=== PATIENT | female | born 1965 | race Hispanic/Latino ===

== ENCOUNTER 2022-07-29 09:38 | Emergency (ER) | payer SELFPAY ==
[2022-07-29] MEDS ORDERED: Ketorolac Tromethamine 30 MG/ML VIAL ONE ×2 (10:17→14:20)
[2022-07-29] MEDS ORDERED: Ondansetron PF 4 MG/2 ML Vial ONE ×3 (10:17→14:20)
[2022-07-29 10:24] LABS: #Eosinphils 0.4 thou/uL (0.0-0.7); #Lymphocytes 2.1 thou/uL (1.20-3.40); #Monocytes 0.8 thou/uL (0.11-0.59); #Neutrophils 6.1 thou/uL (1.40-6.50); %Basophils 0.3 % (0.0-1.0); %Eosinophils 4.6 % (0.0-10.0); %Lymphocytes 22.2 % (21.0-51.0); %Monocytes 8.1 % (0.0-10.0); %Neutrophils 64.8 % (42.0-75.0); Hemoglobin 13.5 g/dL (12.0-16.0); Mean Corpuscular HGB CONC 33.7 g/dL (32.0-36.0); Mean Corpuscular Hemoglobin 29.8 pg (27.0-31.0); Mean Corpuscular Volume 88.4 fl (78.0-98.0); Mean Platelet Volume 7.8 fL (7.4-10.4); Platelet Count 260 10x3/uL (130-400); RBC Distribution Width 12.6 % (11.5-14.5); Red Blood Cell (RBC) Count 4.54 mill/uL (4.20-5.40); White Blood Cell (WBC) Count 9.4 10x3/uL (4.8-10.8)
[2022-07-29 10:45] LABS: ALT (SGPT) 17 U/L (8-55); AST (SGOT) 16 U/L (5-34); Albumin 3.9 g/dL (3.5-5.0); Alkaline Phosphatase 126 U/L (40-110); Anion Gap 14 mmol/L (10-20); BUN (Urea Nitrogen) 8 mg/dL (9.8-20.1); Bilirubin, Total 0.7 mg/dL (0.2-1.2); Calc. Creatinine Clearance 0 mL/min (70-130); Calcium 9.5 mg/dL (7.8-10.44); Carbon Dioxide 26 mmol/L (22-29); Chloride 100 mmol/L (98-107); Estimated GFR 85; Globulin 3.9 g/dL (2.4-3.5); Glucose 200 mg/dL (70-105); Lipase 15 U/L (8-78); Potassium 4.3 mmol/L (3.5-5.1); Protein, Total 7.8 g/dL (6.0-8.3); Sodium 136 mmol/L (136-145)
[2022-07-29 10:51] LABS: Magnesium 1.9 mg/dL (1.6-2.6)
[2022-07-29] MEDS ORDERED: Piperacillin/Tazobactam 4.5 GM VIAL ONE (11:33)
[2022-07-29 12:33] LABS: Bilirubin Negative (Negative); Blood, Urine Negative (Negative); Glucose, Urine (Dipstick) 100 mg/dL (Negative); Ketone, Urine 10 mg/dL (Negative); Leukocyte Negative Leu/uL (Negative); Nitrite Negative (Negative); Protein, Urine (Dipstick) 30 mg/dL (Neg-Trace); RBC/HPF 0-3 HPF (0-3); Specific Gravity, Urine 1.032 (1.002-1.036); Squamous Epithelial 0-3 HPF (0-3); Urobilinogen Normal mg/dL (Less than 2); WBC/HPF 0-3 HPF (0-3); pH, Urine 5.5 (5.0-9.0)
[2022-07-29 12:47] LABS: Clarity Hazy (Clear)
[2022-07-29 12:50] LABS: SARS-CoV-2 NAA Rapid Test Not Detected (NotDetected)
[2022-07-29 12:53] LABS: Bacteria/HPF 1+ HPF (None Seen)
[2022-07-29] MEDS ORDERED: Bupivacaine/Epinephrine 0.25% 30 ML VIAL ONE (13:06)
[2022-07-29] MEDS ORDERED: Iopamidol 30 ML ONE (13:06)
[2022-07-29] MEDS ORDERED: Fentanyl 250 MCG/5 ML VIAL ONE (14:08)
[2022-07-29] MEDS ORDERED: SUGAMMADEX SODIUM 200 MG/2 ML VIAL ONE (14:08)
[2022-07-29] MEDS ORDERED: Midazolam HCl 2 mg/2 ml Vial ONE (14:08)
[2022-07-29] MEDS ORDERED: Lidocaine 1% PF 5 ML VIAL ONE (14:20)
[2022-07-29] MEDS ORDERED: Rocuronium Bromide 10 MG/ML (10ML VIAL) ONE (14:20)
[2022-07-29] MEDS ORDERED: PROPOFOL 200 MG/20 ML VIAL ONE (14:20)
[2022-07-29] MEDS ORDERED: NEOSTIGMINE 3 MG/3 ML SYR 3 MG/3 ML SYRINGE ONE (14:20)
[2022-07-29] MEDS ORDERED: Glycopyrrolate 0.2 MG/ML 5 ML SYRINGE ONE (14:20)
[2022-07-29] MEDS ORDERED: Morphine 4 MG/ML VIAL ONE (15:30)
== END 2022-07-29 13:03 | disposition admitted as inpatient to this hospital (09) ==
LOC: ERS 09:38
DX: K80.00 Calculus of gallbladder with acute cholecystitis without obstruction (principal); E11.9 Type 2 diabetes mellitus without complications; I10 Essential (primary) hypertension; Z79.84 Long term (current) use of oral hypoglycemic drugs; Z20.822 Contact with and (suspected) exposure to COVID-19
CPT/HCPCS: 36415; 47532; 76705; 80053; 81003; 81015; 83690; 83735; 85025; 87040; 87077; 87149; 87186; 88304; 94760; 96365; 96375; C1713; J1611; J1885; J2250; J2270; J2405; J2543; J2704; J3010; Q9967; U0002